=== PATIENT | male | born 1955 | race Caucasian/White ===

== ENCOUNTER 2016-05-18 08:34 | Inpatient (IN) | payer OTHER ==
[~2016-05-18] VITALS: Ht 185.4 cm; Wt 89.5 kg
[~2016-05-18 08:34] MED LIST: AMLO-511 PO; ASPI-1061 PO; DOCU250C91 PO; FLUO-191 PO; SULF1TAB42 PO
[2016-05-18] MEDS ORDERED: ASPI81 PO (08:49)
[2016-05-18] MEDS ORDERED: ENAL5 PO (08:49)
[2016-05-18 08:51] LABS: GLUCOSE,POINT OF CARE 182 MG/DL (70-110)
[2016-05-18] MEDS ORDERED: SODIUM CHLORIDE 0.9% 1,000 ML IV ONE ×2 (09:00→11:00)
[2016-05-18 09:54] LABS: BASOPHILS # (AUTO) 0.04 K/uL (0.00-0.20); BASOPHILS % (AUTO) 0.3 % (0.0-2.0); EOSINOPHILS # (AUTO) 0.01 K/uL (0.00-0.70); EOSINOPHILS % (AUTO) 0.07 % (1.0-6.0); HEMATOCRIT 52.5 % (41-53); HEMOGLOBIN 17.7 g/dL (13.5-17.5); LYMPHOCYTES # (AUTO) 1.6 K/uL (1.0-4.8); LYMPHOCYTES % (AUTO) 11.6 % (22.0-44.0); MEAN CORPUSCULAR HEMOGLOBIN 29.5 pg (26.0-34.0); MEAN CORPUSCULAR HGB CONC 33.8 G/dL (31.0-37.0); MEAN CORPUSCULAR VOLUME 87 fL (80-100); MONOCYTES # (AUTO) 0.7 K/uL (0.1-1.0); MONOCYTES % (AUTO) 4.8 % (2.0-9.0); NEUTROPHILS # (AUTO) 11.8 K/uL (1.8-7.7); NEUTROPHILS % (AUTO) 83.3 % (40.0-70.0); PLATELET COUNT (AUTO) 210 K/uL (150-450); RED BLOOD CELL COUNT(AUTO) 6.01 MIL/uL (4.50-5.90); RED CELL DISTRIBUTION WIDTH 13.7 % (11.5-14.5); WHITE BLOOD COUNT (AUTO) 14.2 K/uL (4.5-11.0)
[2016-05-18 10:06] LABS: PROTHROMBIN TIME 10.4 SEC (9.4-11.6)
[2016-05-18 10:08] LABS: TROPONIN I < 0.02 ng/mL (0.00-0.05)
[2016-05-18 10:08] LABS: ANION GAP 7 mmol/L (8-16); CARBON DIOXIDE 33 mmol/L (22-29); CHLORIDE 100 mmol/L (98-107); CREATININE 1.38 mg/dL (0.60-1.30); GLOMERULAR FILTR. RATE CALC 53 mL/min (>60); POTASSIUM 3.5 mmol/L (3.5-5.1); SODIUM SERUM 140 mmol/L (136-145); UREA NITROGEN, BLOOD 16 mg/dL (7-18)
[2016-05-18 10:13] LABS: ALANINE AMINOTRANSFERASE 18 U/L (12-78); ALBUMIN 3.5 g/dL (3.4-5.0); ASPARTATE AMINOTRANSFERASE 15 U/L (15-37); BILIRUBIN,TOTAL 0.4 mg/dL (0.1-1.0); CREATINE KINASE, TOTAL 63 U/L (39-308); TOTAL PROTEIN, SERUM 7.8 g/dL (6.4-8.2)
[2016-05-18 10:16] LABS: AMMONIA < 10 umol/L (11-32)
[2016-05-18] MEDS ORDERED: ONDANSETRON HCL 4 MG/2 ML VIAL IVP PRN ×2 (11:00→13:30)
[2016-05-18] MEDS ORDERED: MORPHINE SULFATE 2 MG/ML SYRINGE IVP PRN (13:30)
[2016-05-18] MEDS ORDERED: ACETAMINOPHEN 325 MG TABLET PO PRN (13:30)
[2016-05-18] MEDS ORDERED: ZOLPIDEM TARTRATE 5 MG TABLET PO PRN (13:30)
[2016-05-18] MEDS ORDERED: MAGNESIUM HYDROXIDE SUSPENSION 30 ML UDCUP PO PRN (13:30)
[2016-05-18] MEDS ORDERED: HYDROCODONE/ACETAMINOPHEN 5-325 MG TABLET PO PRN (13:30)
[2016-05-18] MEDS ORDERED: BISACODYL 10 MG RECTAL RECTAL SUPPOSITORY PR PRN (13:30)
[2016-05-18 13:38] LABS: APPEARANCE,URINE CLOUDY (CLEAR); GLUCOSE, URINE (UA) 100 mg/dL (NEGATIVE); KETONES,URINE TRACE mg/dL (NEGATIVE); LEUKOCYTE ESTERASE ,URINE MODERATE (NEGATIVE); OCCULT BLOOD,URINE LARGE (NEGATIVE); PH,URINE 5.5 (5.0-8.0); PROTEIN,URINE SEE CONFIRM (NEGATIVE)
[2016-05-18 13:44] LABS: ADD UA MICROSCOPIC YES
[2016-05-18 13:45] LABS: RBC,URINE 26-50 /HPF (0-2); SULFOSALICYLIC ACID,URINE 3+ (Negative)
[2016-05-18 13:46] LABS: HEMATOCRIT 49.6 % (41-53); HEMOGLOBIN 16.3 g/dL (13.5-17.5)
[2016-05-18 18:39] VITALS: BP 148/105
[2016-05-18 19:46] VITALS: BP 152/93
[2016-05-18] MEDS: DOCUSATE SODIUM 100 MG CAPSULE PO SCH (21:00)
[2016-05-18] MEDS: ATORVASTATIN CALCIUM 40 MG TABLET PO SCH (21:00)
[2016-05-18 21:27] LABS: HEMOGLOBIN 16.1 g/dL (13.5-17.5)
[2016-05-19] VITALS (7 sets, daily range): BP systolic 125–171; BP diastolic 56–105
[2016-05-19] MEDS: SODIUM CHLORIDE 0.9% 1,000 ML IV SCH ×3 (01:02→20:59)
[2016-05-19] MEDS: ACETAMINOPHEN 650 MG RECTAL SUPPOSITORY PR PRN (01:09)
[2016-05-19 07:16] LABS: BASOPHILS % (AUTO) 0.3 % (0.0-2.0); EOSINOPHILS % (AUTO) 0 % (1.0-6.0); HEMATOCRIT 44.7 % (41-53); HEMOGLOBIN 14.7 g/dL (13.5-17.5); LYMPHOCYTES # (AUTO) 2.6 K/uL (1.0-4.8); LYMPHOCYTES % (AUTO) 16.4 % (22.0-44.0); MEAN CORPUSCULAR HEMOGLOBIN 29.5 pg (26.0-34.0); MEAN CORPUSCULAR HGB CONC 32.9 G/dL (31.0-37.0); MEAN CORPUSCULAR VOLUME 89 fL (80-100); MONOCYTES # (AUTO) 1.3 K/uL (0.1-1.0); MONOCYTES % (AUTO) 8.3 % (2.0-9.0); PLATELET COUNT (AUTO) 164 K/uL (150-450); RED CELL DISTRIBUTION WIDTH 13.9 % (11.5-14.5)
[2016-05-19 07:41] LABS: CALCIUM, TOTAL 8.2 mg/dL (8.8-10.5); CHOL/HDL RATIO 5.6 (4.2-7.3); CREATININE 1.32 mg/dL (0.60-1.30)
[2016-05-19 08:07] LABS: THYROID STIMULATING HORMONE 1.54 uIU/mL (0.36-3.74)
[2016-05-19] MEDS: ENALAPRIL MALEATE 5 MG TABLET PO SCH (09:00)
[2016-05-19] MEDS: PANTOPRAZOLE SODIUM 40 MG DR TABLET PO SCH (09:00)
[2016-05-19] MEDS: ASPIRIN 81 MG CHEWABLE TABLET PO SCH (09:00)
[2016-05-19] MEDS: DOCUSATE SODIUM 100 MG CAPSULE PO SCH ×2 (09:00→20:56)
[2016-05-19] MEDS: POTASSIUM CHL 10 MEQ/WATER 50 ML IV PRN ×3 (10:42→12:55)
[2016-05-19 12:40] LABS: HEMOGLOBIN A1C 5.1 % (4.5-6.2)
[2016-05-19 13:00] LABS: CHOL/HDL RATIO 5.5 (4.2-7.3); THYROID STIMULATING HORMONE 1.19 uIU/mL (0.36-3.74)
[2016-05-19] MEDS ORDERED: GADOBUTROL 1 MMOL/ML 10 ML VIAL IVP ONE (14:09)
[2016-05-19] MEDS: CefTRIAXone 1 GM/DEXTROSE 50 ML IV SCH (16:16)
[2016-05-19] MEDS: ATORVASTATIN CALCIUM 40 MG TABLET PO SCH (20:56)
[2016-05-19 21:39] LABS: HEMATOCRIT 42.3 % (41-53); HEMOGLOBIN 14.2 g/dL (13.5-17.5)
[2016-05-20] VITALS (7 sets, daily range): BP systolic 161–195; BP diastolic 71–138
[2016-05-20] MEDS: SODIUM CHLORIDE 0.9% 1,000 ML IV SCH ×2 (05:55→16:05)
[2016-05-20 08:08] LABS: BASOPHILS % (AUTO) 0.3 % (0.0-2.0); EOSINOPHILS % (AUTO) 0.3 % (1.0-6.0); HEMATOCRIT 39.6 % (41-53); HEMOGLOBIN 13.2 g/dL (13.5-17.5); LYMPHOCYTES % (AUTO) 17.3 % (22.0-44.0); MEAN CORPUSCULAR HEMOGLOBIN 29.5 pg (26.0-34.0); MEAN CORPUSCULAR HGB CONC 33.4 G/dL (31.0-37.0); MEAN CORPUSCULAR VOLUME 88 fL (80-100); MONOCYTES # (AUTO) 0.9 K/uL (0.1-1.0); MONOCYTES % (AUTO) 8.2 % (2.0-9.0); NEUTROPHILS # (AUTO) 8.4 K/uL (1.8-7.7); NEUTROPHILS % (AUTO) 73.9 % (40.0-70.0); PLATELET COUNT (AUTO) 143 K/uL (150-450); RED BLOOD CELL COUNT(AUTO) 4.48 MIL/uL (4.50-5.90); RED CELL DISTRIBUTION WIDTH 13.6 % (11.5-14.5); WHITE BLOOD COUNT (AUTO) 11.3 K/uL (4.5-11.0)
[2016-05-20 08:15] LABS: ANION GAP 8 mmol/L (8-16); CALCIUM, TOTAL 8.2 mg/dL (8.8-10.5); CARBON DIOXIDE 27 mmol/L (22-29); CHLORIDE 110 mmol/L (98-107); CREATININE 0.93 mg/dL (0.60-1.30); GLOMERULAR FILTR. RATE CALC > 60 mL/min (>60); POTASSIUM 3.2 mmol/L (3.5-5.1); SODIUM SERUM 145 mmol/L (136-145); UREA NITROGEN, BLOOD 21 mg/dL (7-18)
[2016-05-20] MEDS: ENALAPRIL MALEATE 5 MG TABLET PO SCH (09:00)
[2016-05-20] MEDS: ASPIRIN 81 MG CHEWABLE TABLET PO SCH (09:00)
[2016-05-20] MEDS: PANTOPRAZOLE SODIUM 40 MG DR TABLET PO SCH (09:00)
[2016-05-20] MEDS: DOCUSATE SODIUM 100 MG CAPSULE PO SCH ×2 (09:00→20:47)
[2016-05-20] MEDS: POTASSIUM CHL 10 MEQ/WATER 50 ML IV PRN ×3 (10:15→18:30)
[2016-05-20] MEDS ORDERED: HydrALAZINE HCL 20 MG/ML VIAL IVP PRN (10:30)
[2016-05-20] MEDS: CefTRIAXone 1 GM/DEXTROSE 50 ML IV SCH (16:06)
[2016-05-20] MEDS: ATORVASTATIN CALCIUM 40 MG TABLET PO SCH (20:47)
[2016-05-20] MEDS ORDERED: LABETALOL HCL 5 MG/ML 20 ML VIAL IVP PRN (22:30)
[2016-05-21] VITALS (7 sets, daily range): BP systolic 111–168; BP diastolic 77–101
[2016-05-21] MEDS: SODIUM CHLORIDE 0.9% 1,000 ML IV SCH (05:42)
[2016-05-21 08:02] LABS: BASOPHILS # (AUTO) 0.02 K/uL (0.00-0.20); BASOPHILS % (AUTO) 0.1 % (0.0-2.0); EOSINOPHILS # (AUTO) 0.03 K/uL (0.00-0.70); HEMATOCRIT 39.7 % (41-53); HEMOGLOBIN 13.5 g/dL (13.5-17.5); LYMPHOCYTES # (AUTO) 2.3 K/uL (1.0-4.8); LYMPHOCYTES % (AUTO) 16.8 % (22.0-44.0); MEAN CORPUSCULAR HEMOGLOBIN 29.5 pg (26.0-34.0); MEAN CORPUSCULAR VOLUME 87 fL (80-100); MONOCYTES # (AUTO) 1.2 K/uL (0.1-1.0); MONOCYTES % (AUTO) 9.1 % (2.0-9.0); NEUTROPHILS # (AUTO) 10.1 K/uL (1.8-7.7); NEUTROPHILS % (AUTO) 73.8 % (40.0-70.0); PLATELET COUNT (AUTO) 165 K/uL (150-450); RED BLOOD CELL COUNT(AUTO) 4.58 MIL/uL (4.50-5.90); RED CELL DISTRIBUTION WIDTH 13.3 % (11.5-14.5); WHITE BLOOD COUNT (AUTO) 13.7 K/uL (4.5-11.0)
[2016-05-21 08:39] LABS: ANION GAP 13 mmol/L (8-16); CALCIUM, TOTAL 8.1 mg/dL (8.8-10.5); CARBON DIOXIDE 22 mmol/L (22-29); CHLORIDE 108 mmol/L (98-107); CREATININE 0.95 mg/dL (0.60-1.30); GLOMERULAR FILTR. RATE CALC > 60 mL/min (>60); POTASSIUM 3.9 mmol/L (3.5-5.1); SODIUM SERUM 143 mmol/L (136-145); UREA NITROGEN, BLOOD 18 mg/dL (7-18)
[2016-05-21] MEDS: ENALAPRIL MALEATE 5 MG TABLET PO SCH (09:00)
[2016-05-21] MEDS: PANTOPRAZOLE SODIUM 40 MG DR TABLET PO SCH (11:03)
[2016-05-21] MEDS: ASPIRIN 81 MG CHEWABLE TABLET PO SCH (11:03)
[2016-05-21] MEDS: AmLODIPine BESYLATE 10 MG TABLET PO SCH (11:03)
[2016-05-21] MEDS: DOCUSATE SODIUM 100 MG CAPSULE PO SCH ×2 (11:06→21:32)
[2016-05-21] MEDS ORDERED: FUROSEMIDE 20 MG/2 ML VIAL IVP ONE ×2 (14:45→16:45)
[2016-05-21] MEDS: CefTRIAXone 1 GM/DEXTROSE 50 ML IV SCH (16:39)
[2016-05-21] MEDS: ATORVASTATIN CALCIUM 40 MG TABLET PO SCH (21:32)
[2016-05-22 06:44] LABS: BASOPHILS % (AUTO) 0.4 % (0.0-2.0); EOSINOPHILS % (AUTO) 1.6 % (1.0-6.0); HEMATOCRIT 40.8 % (41-53); HEMOGLOBIN 13.4 g/dL (13.5-17.5); LYMPHOCYTES # (AUTO) 2.4 K/uL (1.0-4.8); LYMPHOCYTES % (AUTO) 25.9 % (22.0-44.0); MEAN CORPUSCULAR HEMOGLOBIN 29.4 pg (26.0-34.0); MEAN CORPUSCULAR HGB CONC 32.9 G/dL (31.0-37.0); MEAN CORPUSCULAR VOLUME 89 fL (80-100); MONOCYTES # (AUTO) 0.9 K/uL (0.1-1.0); MONOCYTES % (AUTO) 9.5 % (2.0-9.0); NEUTROPHILS # (AUTO) 5.8 K/uL (1.8-7.7); NEUTROPHILS % (AUTO) 62.6 % (40.0-70.0); PLATELET COUNT (AUTO) 176 K/uL (150-450); RED BLOOD CELL COUNT(AUTO) 4.58 MIL/uL (4.50-5.90); RED CELL DISTRIBUTION WIDTH 13.9 % (11.5-14.5); WHITE BLOOD COUNT (AUTO) 9.3 K/uL (4.5-11.0)
[2016-05-22 07:22] LABS: ANION GAP 8 mmol/L (8-16); CALCIUM, TOTAL 8.4 mg/dL (8.8-10.5); CARBON DIOXIDE 26 mmol/L (22-29); CHLORIDE 105 mmol/L (98-107); CREATININE 0.94 mg/dL (0.60-1.30); GLOMERULAR FILTR. RATE CALC > 60 mL/min (>60); POTASSIUM 3.1 mmol/L (3.5-5.1); SODIUM SERUM 139 mmol/L (136-145); UREA NITROGEN, BLOOD 22 mg/dL (7-18)
[2016-05-22 07:59] VITALS: BP 167/99
[2016-05-22] MEDS: DOCUSATE SODIUM 100 MG CAPSULE PO SCH ×2 (08:09→21:11)
[2016-05-22] MEDS: PANTOPRAZOLE SODIUM 40 MG DR TABLET PO SCH (08:09)
[2016-05-22] MEDS: AmLODIPine BESYLATE 10 MG TABLET PO SCH (08:09)
[2016-05-22] MEDS: ASPIRIN 81 MG CHEWABLE TABLET PO SCH (08:09)
[2016-05-22] MEDS: ENALAPRIL MALEATE 5 MG TABLET PO SCH (08:10)
[2016-05-22] MEDS ORDERED: FUROSEMIDE 20 MG/2 ML VIAL IVP ONE (09:00)
[2016-05-22 09:35] VITALS: BP 149/85
[2016-05-22 11:13] VITALS: BP 145/96
[2016-05-22 15:00] VITALS: BP 151/102
[2016-05-22] MEDS: CefTRIAXone 1 GM/DEXTROSE 50 ML IV SCH (16:23)
[2016-05-22] MEDS: POTASSIUM CHLORIDE 20 MEQ ER TABLET PO PRN (16:23)
[2016-05-22 19:36] VITALS: BP 150/87
[2016-05-22] MEDS: ATORVASTATIN CALCIUM 40 MG TABLET PO SCH (21:11)
[2016-05-22 23:35] VITALS: BP 151/83
[2016-05-23 04:42] VITALS: BP 160/101
[2016-05-23 05:48] LABS: BASOPHILS % (AUTO) 0.4 % (0.0-2.0); EOSINOPHILS % (AUTO) 1.8 % (1.0-6.0); HEMATOCRIT 42.4 % (41-53); HEMOGLOBIN 13.8 g/dL (13.5-17.5); LYMPHOCYTES # (AUTO) 2.6 K/uL (1.0-4.8); LYMPHOCYTES % (AUTO) 26.7 % (22.0-44.0); MEAN CORPUSCULAR HEMOGLOBIN 29.1 pg (26.0-34.0); MEAN CORPUSCULAR HGB CONC 32.5 G/dL (31.0-37.0); MEAN CORPUSCULAR VOLUME 90 fL (80-100); MONOCYTES # (AUTO) 1.1 K/uL (0.1-1.0); MONOCYTES % (AUTO) 11.8 % (2.0-9.0); NEUTROPHILS # (AUTO) 5.7 K/uL (1.8-7.7); NEUTROPHILS % (AUTO) 59.3 % (40.0-70.0); PLATELET COUNT (AUTO) 192 K/uL (150-450); RED BLOOD CELL COUNT(AUTO) 4.73 MIL/uL (4.50-5.90); RED CELL DISTRIBUTION WIDTH 13.9 % (11.5-14.5); WHITE BLOOD COUNT (AUTO) 9.7 K/uL (4.5-11.0)
[2016-05-23 06:08] LABS: ANION GAP 8 mmol/L (8-16); CALCIUM, TOTAL 8.1 mg/dL (8.8-10.5); CARBON DIOXIDE 28 mmol/L (22-29); CHLORIDE 102 mmol/L (98-107); CREATININE 0.96 mg/dL (0.60-1.30); GLOMERULAR FILTR. RATE CALC > 60 mL/min (>60); POTASSIUM 3.3 mmol/L (3.5-5.1); SODIUM SERUM 138 mmol/L (136-145); UREA NITROGEN, BLOOD 20 mg/dL (7-18)
[2016-05-23] MEDS: POTASSIUM CHL 10 MEQ/WATER 50 ML IV PRN (06:32)
[2016-05-23 07:50] VITALS: BP 153/96
[2016-05-23] MEDS ORDERED: CeFAZolin 1 GM/DEXTROSE 50 ML IV ONE (08:00)
[2016-05-23] MEDS: AmLODIPine BESYLATE 10 MG TABLET PO SCH (09:01)
[2016-05-23] MEDS: DOCUSATE SODIUM 100 MG CAPSULE PO SCH ×2 (09:01→19:54)
[2016-05-23] MEDS: ASPIRIN 81 MG CHEWABLE TABLET PO SCH (09:02)
[2016-05-23] MEDS: PANTOPRAZOLE SODIUM 40 MG DR TABLET PO SCH (09:02)
[2016-05-23] MEDS: ENALAPRIL MALEATE 5 MG TABLET PO SCH (09:02)
[2016-05-23] MEDS: POTASSIUM CHLORIDE 20 MEQ ER TABLET PO PRN (09:02)
[2016-05-23 11:38] VITALS: BP 140/93
[2016-05-23 15:55] VITALS: BP 137/75
[2016-05-23 19:37] VITALS: BP 162/106
[2016-05-23] MEDS: CefTRIAXone 1 GM/DEXTROSE 50 ML IV SCH (19:49)
[2016-05-23] MEDS ORDERED: SODIUM CHLORIDE 0.9% 500 ML IV ONE (19:54)
[2016-05-23] MEDS: ATORVASTATIN CALCIUM 40 MG TABLET PO SCH (19:54)
[2016-05-23 23:34] VITALS: BP 161/101
[2016-05-24 04:53] VITALS: BP 145/101
[2016-05-24 06:39] LABS: BASOPHILS # (AUTO) 0.01 K/uL (0.00-0.20); BASOPHILS % (AUTO) 0.1 % (0.0-2.0); EOSINOPHILS # (AUTO) 0.16 K/uL (0.00-0.70); EOSINOPHILS % (AUTO) 1.33 % (1.0-6.0); HEMATOCRIT 42.8 % (41-53); HEMOGLOBIN 14.2 g/dL (13.5-17.5); LYMPHOCYTES # (AUTO) 2.2 K/uL (1.0-4.8); LYMPHOCYTES % (AUTO) 18.6 % (22.0-44.0); MEAN CORPUSCULAR HEMOGLOBIN 29.3 pg (26.0-34.0); MEAN CORPUSCULAR HGB CONC 33.1 G/dL (31.0-37.0); MEAN CORPUSCULAR VOLUME 88 fL (80-100); MONOCYTES # (AUTO) 1.3 K/uL (0.1-1.0); NEUTROPHILS # (AUTO) 8.1 K/uL (1.8-7.7); PLATELET COUNT (AUTO) 202 K/uL (150-450); RED BLOOD CELL COUNT(AUTO) 4.85 MIL/uL (4.50-5.90); RED CELL DISTRIBUTION WIDTH 13.7 % (11.5-14.5); WHITE BLOOD COUNT (AUTO) 11.7 K/uL (4.5-11.0)
[2016-05-24 06:51] LABS: ANION GAP 7 mmol/L (8-16); CALCIUM, TOTAL 8.1 mg/dL (8.8-10.5); CARBON DIOXIDE 29 mmol/L (22-29); CHLORIDE 100 mmol/L (98-107); GLOMERULAR FILTR. RATE CALC > 60 mL/min (>60); POTASSIUM 3.8 mmol/L (3.5-5.1); SODIUM SERUM 136 mmol/L (136-145); UREA NITROGEN, BLOOD 17 mg/dL (7-18)
[2016-05-24 07:44] VITALS: BP 146/108
[2016-05-24 10:58] VITALS: BP 124/101
[2016-05-24 15:47] VITALS: BP 112/60
[2016-05-24] MEDS: PANTOPRAZOLE SODIUM 40 MG DR TABLET PO SCH (17:02)
[2016-05-24] MEDS: AmLODIPine BESYLATE 10 MG TABLET PO SCH (17:02)
[2016-05-24] MEDS: ASPIRIN 81 MG CHEWABLE TABLET PO SCH (17:02)
[2016-05-24] MEDS: DOCUSATE SODIUM 100 MG CAPSULE PO SCH ×2 (17:02→19:36)
[2016-05-24] MEDS: ENALAPRIL MALEATE 5 MG TABLET PO SCH (17:02)
[2016-05-24] MEDS: CefTRIAXone 1 GM/DEXTROSE 50 ML IV SCH (17:03)
[2016-05-24 19:21] VITALS: BP 153/68
[2016-05-24] MEDS: ATORVASTATIN CALCIUM 40 MG TABLET PO SCH (19:36)
[2016-05-24 23:17] VITALS: BP 138/87
[2016-05-24] MEDS: ACETAMINOPHEN 650 MG RECTAL SUPPOSITORY PR PRN (23:33)
[2016-05-25 01:08] LABS: APPEARANCE,URINE CLOUDY (CLEAR); GLUCOSE, URINE (UA) NEGATIVE (NEGATIVE); KETONES,URINE NEGATIVE (NEGATIVE); LEUKOCYTE ESTERASE ,URINE SMALL (NEGATIVE); OCCULT BLOOD,URINE LARGE (NEGATIVE); PH,URINE 6.5 (5.0-8.0); PROTEIN,URINE POS 1+ (NEGATIVE)
[2016-05-25 01:23] LABS: RBC,URINE >100 /HPF (0-2)
[2016-05-25 02:00] LABS: INFLUENZA TYPE B NEGATIVE FOR TYPE B (NEGATIVE)
[2016-05-25 04:48] VITALS: BP 115/53
[2016-05-25 06:16] LABS: BASOPHILS % (AUTO) 0.2 % (0.0-2.0); EOSINOPHILS % (AUTO) 1.1 % (1.0-6.0); HEMATOCRIT 39.6 % (41-53); HEMOGLOBIN 12.9 g/dL (13.5-17.5); LYMPHOCYTES # (AUTO) 2.3 K/uL (1.0-4.8); LYMPHOCYTES % (AUTO) 18.9 % (22.0-44.0); MEAN CORPUSCULAR HEMOGLOBIN 29.1 pg (26.0-34.0); MEAN CORPUSCULAR HGB CONC 32.6 G/dL (31.0-37.0); MEAN CORPUSCULAR VOLUME 89 fL (80-100); MONOCYTES # (AUTO) 1.7 K/uL (0.1-1.0); MONOCYTES % (AUTO) 14.6 % (2.0-9.0); NEUTROPHILS # (AUTO) 7.8 K/uL (1.8-7.7); NEUTROPHILS % (AUTO) 65.2 % (40.0-70.0); PLATELET COUNT (AUTO) 188 K/uL (150-450); RED BLOOD CELL COUNT(AUTO) 4.43 MIL/uL (4.50-5.90); RED CELL DISTRIBUTION WIDTH 13.6 % (11.5-14.5); WHITE BLOOD COUNT (AUTO) 11.9 K/uL (4.5-11.0)
[2016-05-25 06:28] LABS: ANION GAP 8 mmol/L (8-16); CALCIUM, TOTAL 8.2 mg/dL (8.8-10.5); CARBON DIOXIDE 27 mmol/L (22-29); CHLORIDE 100 mmol/L (98-107); CREATININE 0.99 mg/dL (0.60-1.30); GLOMERULAR FILTR. RATE CALC > 60 mL/min (>60); POTASSIUM 3.9 mmol/L (3.5-5.1); SODIUM SERUM 135 mmol/L (136-145); UREA NITROGEN, BLOOD 19 mg/dL (7-18)
[2016-05-25 08:01] VITALS: BP 122/75
[2016-05-25] MEDS: AmLODIPine BESYLATE 10 MG TABLET PO SCH (09:31)
[2016-05-25] MEDS: ASPIRIN 81 MG CHEWABLE TABLET PO SCH (09:31)
[2016-05-25] MEDS: DOCUSATE SODIUM 100 MG CAPSULE PO SCH ×2 (09:31→20:17)
[2016-05-25] MEDS: PANTOPRAZOLE SODIUM 40 MG DR TABLET PO SCH (09:31)
[2016-05-25] MEDS: ENALAPRIL MALEATE 5 MG TABLET PO SCH (09:31)
[2016-05-25 11:49] VITALS: BP 108/60
[2016-05-25 15:44] VITALS: BP 117/52
[2016-05-25] MEDS: CefTRIAXone 1 GM/DEXTROSE 50 ML IV SCH (17:22)
[2016-05-25 19:21] VITALS: BP 116/57
[2016-05-25] MEDS: ATORVASTATIN CALCIUM 40 MG TABLET PO SCH (20:17)
[2016-05-25 23:57] VITALS: BP 134/75
[2016-05-26] MEDS ORDERED: SODIUM CHLORIDE 0.9% 500 ML IV ONE (03:24)
[2016-05-26 04:12] VITALS: BP 131/96
[2016-05-26 06:40] LABS: BASOPHILS % (AUTO) 0.2 % (0.0-2.0); EOSINOPHILS % (AUTO) 0.6 % (1.0-6.0); HEMATOCRIT 41.1 % (41-53); HEMOGLOBIN 13.4 g/dL (13.5-17.5); LYMPHOCYTES # (AUTO) 1.9 K/uL (1.0-4.8); LYMPHOCYTES % (AUTO) 15.6 % (22.0-44.0); MEAN CORPUSCULAR HEMOGLOBIN 28.9 pg (26.0-34.0); MEAN CORPUSCULAR HGB CONC 32.6 G/dL (31.0-37.0); MEAN CORPUSCULAR VOLUME 89 fL (80-100); MONOCYTES # (AUTO) 1.5 K/uL (0.1-1.0); MONOCYTES % (AUTO) 12.3 % (2.0-9.0); NEUTROPHILS # (AUTO) 8.8 K/uL (1.8-7.7); NEUTROPHILS % (AUTO) 71.3 % (40.0-70.0); PLATELET COUNT (AUTO) 199 K/uL (150-450); RED BLOOD CELL COUNT(AUTO) 4.64 MIL/uL (4.50-5.90); WHITE BLOOD COUNT (AUTO) 12.4 K/uL (4.5-11.0)
[2016-05-26 06:51] LABS: ANION GAP 7 mmol/L (8-16); CALCIUM, TOTAL 8.3 mg/dL (8.8-10.5); CARBON DIOXIDE 29 mmol/L (22-29); CHLORIDE 98 mmol/L (98-107); CREATININE 0.93 mg/dL (0.60-1.30); GLOMERULAR FILTR. RATE CALC > 60 mL/min (>60); SODIUM SERUM 134 mmol/L (136-145); UREA NITROGEN, BLOOD 17 mg/dL (7-18)
[2016-05-26 08:01] VITALS: BP 91/61
[2016-05-26] MEDS: ASPIRIN 81 MG CHEWABLE TABLET PO SCH (08:53)
[2016-05-26] MEDS: ENALAPRIL MALEATE 5 MG TABLET PO SCH (08:54)
[2016-05-26] MEDS: AmLODIPine BESYLATE 10 MG TABLET PO SCH (08:54)
[2016-05-26] MEDS: PANTOPRAZOLE SODIUM 40 MG DR TABLET PO SCH (08:54)
[2016-05-26] MEDS: DOCUSATE SODIUM 100 MG CAPSULE PO SCH ×2 (08:54→20:18)
[2016-05-26 09:38] VITALS: BP 123/60
[2016-05-26] MEDS ORDERED: SODIUM CHLORIDE 0.9% 1,000 ML IV ONE ×2 (09:44→10:00)
[2016-05-26] MEDS ORDERED: MIDAZOLAM HCL 5 MG/ML VIAL ONE (10:53)
[2016-05-26] MEDS ORDERED: FentaNYL CITRATE-PF 100 MCG/2 ML VIAL ONE (10:53)
[2016-05-26] MEDS ORDERED: NALOXONE HCL 1 MG/ML 2 ML SYG IVP PRN (11:45)
[2016-05-26] MEDS: CefTRIAXone 1 GM/DEXTROSE 50 ML IV SCH (15:40)
[2016-05-26 16:23] VITALS: BP 136/96
[2016-05-26 19:21] VITALS: BP 146/75
[2016-05-26] MEDS: ATORVASTATIN CALCIUM 40 MG TABLET PO SCH (20:18)
[2016-05-26 23:43] VITALS: BP 127/67
[2016-05-27 04:11] VITALS: BP 148/87
[2016-05-27] MEDS: ACETAMINOPHEN 650 MG RECTAL SUPPOSITORY PR PRN ×2 (04:55→21:58)
[2016-05-27 06:30] LABS: BASOPHILS # (AUTO) 0.06 K/uL (0.00-0.20); BASOPHILS % (AUTO) 0.5 % (0.0-2.0); EOSINOPHILS # (AUTO) 0.09 K/uL (0.00-0.70); EOSINOPHILS % (AUTO) 0.76 % (1.0-6.0); HEMATOCRIT 40.8 % (41-53); HEMOGLOBIN 13.4 g/dL (13.5-17.5); LYMPHOCYTES # (AUTO) 1.7 K/uL (1.0-4.8); LYMPHOCYTES % (AUTO) 14.6 % (22.0-44.0); MEAN CORPUSCULAR HGB CONC 32.8 G/dL (31.0-37.0); MEAN CORPUSCULAR VOLUME 88 fL (80-100); MONOCYTES # (AUTO) 1.4 K/uL (0.1-1.0); MONOCYTES % (AUTO) 11.6 % (2.0-9.0); NEUTROPHILS # (AUTO) 8.5 K/uL (1.8-7.7); NEUTROPHILS % (AUTO) 72.6 % (40.0-70.0); PLATELET COUNT (AUTO) 221 K/uL (150-450); RED BLOOD CELL COUNT(AUTO) 4.63 MIL/uL (4.50-5.90); RED CELL DISTRIBUTION WIDTH 13.8 % (11.5-14.5); WHITE BLOOD COUNT (AUTO) 11.7 K/uL (4.5-11.0)
[2016-05-27 06:49] LABS: ANION GAP 7 mmol/L (8-16); CALCIUM, TOTAL 8.6 mg/dL (8.8-10.5); CARBON DIOXIDE 28 mmol/L (22-29); CHLORIDE 98 mmol/L (98-107); CREATININE 0.85 mg/dL (0.60-1.30); GLOMERULAR FILTR. RATE CALC > 60 mL/min (>60); POTASSIUM 4.3 mmol/L (3.5-5.1); SODIUM SERUM 133 mmol/L (136-145); UREA NITROGEN, BLOOD 18 mg/dL (7-18)
[2016-05-27 07:10] VITALS: BP 112/77
[2016-05-27] MEDS: DOCUSATE SODIUM 100 MG CAPSULE PO SCH ×2 (09:26→21:57)
[2016-05-27] MEDS: PANTOPRAZOLE SODIUM 40 MG DR TABLET PO SCH (09:26)
[2016-05-27] MEDS: AmLODIPine BESYLATE 10 MG TABLET PO SCH (09:26)
[2016-05-27] MEDS: ENALAPRIL MALEATE 5 MG TABLET PO SCH (09:26)
[2016-05-27] MEDS: ASPIRIN 81 MG CHEWABLE TABLET PO SCH (09:26)
[2016-05-27] MEDS: POVIDONE-IODINE 10% 120 ML SOLUTION TP SCH (09:27)
[2016-05-27] MEDS: HYDROGEN PEROXIDE 473 ML SOLUTION TP SCH (09:27)
[2016-05-27 11:00] VITALS: BP 121/78
[2016-05-27 14:45] VITALS: BP 104/66
[2016-05-27 15:46] LABS: APPEARANCE,URINE CLOUDY (CLEAR); GLUCOSE, URINE (UA) NEGATIVE (NEGATIVE); KETONES,URINE NEGATIVE (NEGATIVE); LEUKOCYTE ESTERASE ,URINE TRACE (NEGATIVE); OCCULT BLOOD,URINE TRACE (NEGATIVE); PROTEIN,URINE POS 1+ (NEGATIVE)
[2016-05-27] MEDS: CefTRIAXone 1 GM/DEXTROSE 50 ML IV SCH (16:00)
[2016-05-27 16:04] LABS: ADD UA MICROSCOPIC YES
[2016-05-27 16:05] LABS: SQUAMOUS EPITHELIAL CELL,UR Rare /LPF (None Seen)
[2016-05-27 19:22] VITALS: BP 110/58
[2016-05-27] MEDS: ATORVASTATIN CALCIUM 40 MG TABLET PO SCH (21:57)
[2016-05-27 23:49] VITALS: BP 105/63
[2016-05-28] MEDS ORDERED: SODIUM CHLORIDE 0.9% 500 ML IV ONE (03:56)
[2016-05-28 04:10] VITALS: BP 123/68
[2016-05-28 07:59] VITALS: BP 127/80
[2016-05-28] MEDS: AmLODIPine BESYLATE 10 MG TABLET PO SCH (08:39)
[2016-05-28] MEDS: DOCUSATE SODIUM 100 MG CAPSULE PO SCH ×2 (08:39→20:55)
[2016-05-28] MEDS: ASPIRIN 81 MG CHEWABLE TABLET PO SCH (08:39)
[2016-05-28] MEDS: ENALAPRIL MALEATE 5 MG TABLET PO SCH (08:39)
[2016-05-28] MEDS: PANTOPRAZOLE SODIUM 40 MG DR TABLET PO SCH (08:39)
[2016-05-28] MEDS: POVIDONE-IODINE 10% 120 ML SOLUTION TP SCH (08:39)
[2016-05-28] MEDS: HYDROGEN PEROXIDE 473 ML SOLUTION TP SCH (08:40)
[2016-05-28] MEDS: CefTRIAXone 1 GM/DEXTROSE 50 ML IV SCH (15:18)
[2016-05-28 16:20] VITALS: BP 101/50
[2016-05-28 19:59] VITALS: BP 113/71
[2016-05-28] MEDS: ATORVASTATIN CALCIUM 40 MG TABLET PO SCH (20:55)
[2016-05-28 23:41] VITALS: BP 121/81
[2016-05-29 05:19] VITALS: BP 146/88
[2016-05-29 08:05] VITALS: BP_SYST 102; BP_SYST 123; BP_DIAS 56; BP_DIAS 93
[2016-05-29] MEDS: AmLODIPine BESYLATE 10 MG TABLET PO SCH (09:00)
[2016-05-29] MEDS: PANTOPRAZOLE SODIUM 40 MG DR TABLET PO SCH (09:00)
[2016-05-29] MEDS: ENALAPRIL MALEATE 5 MG TABLET PO SCH (09:00)
[2016-05-29] MEDS: POVIDONE-IODINE 10% 120 ML SOLUTION TP SCH (09:01)
[2016-05-29] MEDS: ASPIRIN 81 MG CHEWABLE TABLET PO SCH (09:01)
[2016-05-29] MEDS: DOCUSATE SODIUM 100 MG CAPSULE PO SCH ×2 (09:01→20:51)
[2016-05-29] MEDS: HYDROGEN PEROXIDE 473 ML SOLUTION TP SCH (09:01)
[2016-05-29 11:20] VITALS: BP 113/43
[2016-05-29 15:17] VITALS: BP 111/56
[2016-05-29] MEDS: CefTRIAXone 1 GM/DEXTROSE 50 ML IV SCH (15:31)
[2016-05-29 19:20] VITALS: BP 137/92
[2016-05-29] MEDS: ATORVASTATIN CALCIUM 40 MG TABLET PO SCH (20:50)
[2016-05-29 23:42] VITALS: BP 119/85
[2016-05-30 04:22] VITALS: BP 152/95
[2016-05-30 07:49] VITALS: BP 139/96
[2016-05-30] MEDS: ENALAPRIL MALEATE 5 MG TABLET PO SCH (08:32)
[2016-05-30] MEDS: POVIDONE-IODINE 10% 120 ML SOLUTION TP SCH (08:33)
[2016-05-30] MEDS: DOCUSATE SODIUM 100 MG CAPSULE PO SCH ×2 (08:33→20:50)
[2016-05-30] MEDS: ASPIRIN 81 MG CHEWABLE TABLET PO SCH (08:33)
[2016-05-30] MEDS: AmLODIPine BESYLATE 10 MG TABLET PO SCH (08:33)
[2016-05-30] MEDS: HYDROGEN PEROXIDE 473 ML SOLUTION TP SCH (08:33)
[2016-05-30] MEDS: PANTOPRAZOLE SODIUM 40 MG DR TABLET PO SCH (08:33)
[2016-05-30 11:19] VITALS: BP 134/95
[2016-05-30 15:44] VITALS: BP 113/66
[2016-05-30] MEDS: CefTRIAXone 1 GM/DEXTROSE 50 ML IV SCH (15:53)
[2016-05-30 19:29] VITALS: BP 160/89
[2016-05-30] MEDS: ATORVASTATIN CALCIUM 40 MG TABLET PO SCH (20:50)
[2016-05-30 23:36] VITALS: BP 137/79
[2016-05-31 05:31] VITALS: BP 138/80
[2016-05-31 07:08] VITALS: BP 149/89
[2016-05-31] MEDS: DOCUSATE SODIUM 100 MG CAPSULE PO SCH ×2 (08:17→20:30)
[2016-05-31] MEDS: ENALAPRIL MALEATE 5 MG TABLET PO SCH (08:17)
[2016-05-31] MEDS: AmLODIPine BESYLATE 10 MG TABLET PO SCH (08:17)
[2016-05-31] MEDS: ASPIRIN 81 MG CHEWABLE TABLET PO SCH (08:17)
[2016-05-31] MEDS: PANTOPRAZOLE SODIUM 40 MG DR TABLET PO SCH (08:17)
[2016-05-31] MEDS: HYDROGEN PEROXIDE 473 ML SOLUTION TP SCH (08:18)
[2016-05-31] MEDS: POVIDONE-IODINE 10% 120 ML SOLUTION TP SCH (08:18)
[2016-05-31 11:21] VITALS: BP 123/74
[2016-05-31 15:37] VITALS: BP 100/95
[2016-05-31] MEDS: CefTRIAXone 1 GM/DEXTROSE 50 ML IV SCH (16:06)
[2016-05-31 19:28] VITALS: BP 130/86
[2016-05-31] MEDS: ATORVASTATIN CALCIUM 40 MG TABLET PO SCH (20:30)
[2016-05-31] MEDS ORDERED: SODIUM CHLORIDE 0.9% 250 ML IV ONE (22:00)
[2016-05-31 23:17] VITALS: BP 132/85
[2016-06-01 05:04] VITALS: BP 125/88
== END 2016-06-01 08:00 | disposition home health service (06) | DRG 710 ==
LOC: EMS 08:36 → 5N 17:07 → 6N 05-20 18:30
PROVIDERS: ADMIT Internal Medicine; ATTEND Internal Medicine
PROC: 0DH68UZ Insertion of Feeding Device into Stomach, Via Natural or Artificial Opening Endoscopic (ICD-10-PCS; principal; 2016-05-26 11:30)
DX: A41.9 Sepsis, unspecified organism (principal); I63.9 Cerebral infarction, unspecified; J69.0 Pneumonitis due to inhalation of food and vomit; G93.41 Metabolic encephalopathy; R13.10 Dysphagia, unspecified; G81.91 Hemiplegia, unspecified affecting right dominant side; I69.354 Hemiplegia and hemiparesis following cerebral infarction affecting left non-dominant side; N39.0 Urinary tract infection, site not specified; E87.6 Hypokalemia; N18.3 Chronic kidney disease, stage 3 (moderate); E44.1 Mild protein-calorie malnutrition; E86.0 Dehydration; I12.9 Hypertensive chronic kidney disease with stage 1 through stage 4 chronic kidney disease, or unspecified chronic kidney disease; R47.01 Aphasia; I65.21 Occlusion and stenosis of right carotid artery; Z79.82 Long term (current) use of aspirin; Z79.899 Other long term (current) drug therapy; Z87.440 Personal history of urinary (tract) infections; Z68.26 Body mass index [BMI] 26.0-26.9, adult
CPT/HCPCS: 51702; 70450; 70544; 70549; 70551; 74000; 82607; 82746; 82962; 83036; 84132; 84443; 85014; 85018; 87040; 87081; 87086; 87804; 92526; 92610; 93005; 93306; 96360; 96361; 97163; 99291; A9585; J0360; J0690; J0696; J1940; J2250; J2270; J3010; J3480; J7030; J7040; J7050

== ENCOUNTER 2016-06-21 20:29 | Emergency (ER) | payer OTHER ==
[~2016-06-21] VITALS: Ht 182.9 cm; Wt 90.0 kg
[~2016-06-21 20:29] MED LIST changes: -AMLO-511 PO; -ASPI-1061 PO; +ASPI81 PO; +ATROPINE SULFATE 0.1 MG/ML 10 ML SYRINGE IVP ONE; -DOCU250C91 PO; +ENAL5 PO; +EPINEPHrine 1:10,000 [1 MG/10 ML] SYRINGE IVP ONE; -FLUO-191 PO; +SODIUM BICARBONATE [ADULT] 8.4% 50 MEQ/50 ML SYRINGE IVP ONE; -SULF1TAB42 PO
[2016-06-21] MEDS ORDERED: RAPID SEQUENCE KIT [RSI] 1 EACH KIT ONE ×2 (20:37)
[2016-06-21] MEDS ORDERED: SUCCINYLCHOLINE CHLORIDE 20 MG/ML 10 ML VIAL ONE (20:38)
[2016-06-21] MEDS ORDERED: CefTRIAXone 1 GM/DEXTROSE 50 ML IV ONE (20:45)
[2016-06-21] MEDS ORDERED: SODIUM CHLORIDE 0.9% 1,000 ML IV ONE (20:45)
[2016-06-21 20:47] LABS: GLUCOSE,POINT OF CARE 354 MG/DL (70-110)
[2016-06-21 20:50] VITALS: BP 207/169
== END 2016-06-21 22:27 | disposition expired ==
LOC: EMS 20:30
DX: J96.90 Respiratory failure, unspecified, unspecified whether with hypoxia or hypercapnia (principal); I46.9 Cardiac arrest, cause unspecified; I10 Essential (primary) hypertension; Z86.73 Personal history of transient ischemic attack (TIA), and cerebral infarction without residual deficits; Z79.82 Long term (current) use of aspirin
CPT/HCPCS: 31500; 51702; 82962; 93005; 94002; 99291; J0330; J0461; Z7610; J0171; J3490